=== PATIENT | female | born 2005 | race Caucasian/White ===

== ENCOUNTER 2024-06-26 19:59 | Emergency (ER) | payer BC, SELFPAY ==
--- NOTE | ~2024-06-26 | CT_ITS ---
EXAMINATION: CT brain wo con DATE: 06/26/2024 21:13 INDICATION: dizziness X 5 DAYS. . TECHNIQUE: Computed tomography (CT) of the head was performed without intravenous contrast. The mA wa s adjusted according to patient size. Iterative reconstruction technique was employed. The dose-lengt h product was 605.33 mGy-cm. COMPARISON: None. FINDINGS: No acute intracranial hemorrhage or extra-axial fluid collection. No hydrocephalus, mass, or herniation. No acute ischemic infarct. Unremarkable dural venous sinus attenuation. No acute osseous abnormality. The aerated spaces are clear. IMPRESSION: No acute intracranial process. Reviewed, dictated and finalized at location K. BREEDER
--- NOTE | ~2024-06-26 | XR_ITS ---
EXAMINATION: XR chest 1V Exam Date/Time: 06/26/2024 21:00 CESSATION SYSTEMS OUTREACH SPECIALIST HISTORY: Dizziness Comparison: None. RESULT: Lines, tubes, and devices: None. Lungs and pleura: Clear. Cardiomediastinal silhouette: Normal. Other: No acute osseous or upper abdominal finding. IMPRESSION: No acute cardiopulmonary process. Reviewed, dictated and finalized at location K. ATION SYSTEMS OUTREACH SPECIALIST
[2024-06-26 20:03] VITALS: BP 152/92; PULSE 124; RESP 20; TEMP 37; O2SAT 99
--- NOTE | 2024-06-26 20:17 | ECG_ITS ---
Test Date: 2024-06-26 20:36:38 Measurements Intervals [place] Rate: 118 P: 50 [place]: 164 QRS: 33 QRSD: 94 T: 5 QT: 324 QTc: 455 Interpretive Statements SINUS TACHYCARDIA NONSPECIFIC ST AND T-WAVE ABNORMALITY ABNORMAL ECG No previous ECG available for comparison Electronically Signed On 06-27-2024 10:21:24 PERIOPERATIVE TECH by Matt Pena M.D.
--- NOTE | 2024-06-26 20:17 | ED.DIZZY ---
HPI - Dizziness General Chief Complaint: Dizziness Stated Complaint: Dizziness/Weakness Time Seen by Provider: 06/26/24 20:06 Source: patient Mode of arrival: ambulatory Limitations: no limitations History of Present Illness HPI Narrative: patient is 19 years old white female drove herself to the emergency room because of dizziness, lightheadedness and feeling like going to black out for the last 5 days. Patient been taking Antivert without improvement. History of similar symptoms secondary to vertigo and usually gets better on Antivert. History of anxiety, depression, factor 5 deficiency syndrome, patient quit taking Lexapro 2 weeks ago. She does not believe is working. She denies any fever, chills, chest pain, shortness of breath, she report intermittent headache, possible fever, intermittent nausea, patient report her symptoms gets worse with movement, nothing make it better Patient does not drink alcohol, she vapes, denied drug use. Patient started her menstrual cycle today. She denies any chest pain or shortness of breath or leg pain Related Data Home Medications ?Medication ?Instructions ?Recorded ?Confirmed ?Last Taken ?Type No Home Medications 06/26/24 06/26/24 Unknown History Allergies Allergy/AdvReac Type Severity Reaction Status Date / Time No Known Allergies Allergy Verified 06/26/24 20:01 Review of Systems Review of Systems: All systems reviewed & are unremarkable except as noted in HPI and below Exam Narrative: General appearance: Well-developed, well-nourished Skin: Normal color Head: Normocephalic, nontraumatic Eyes: Clear conjunctiva ENT: Oropharynx normal, ears normal, nose normal Neck: Supple, nontender Chest and respiratory: Airway patent, no respiratory distress, no accessory muscle use Heart: tachycardia Abdomen: Soft, nontender, no organomegaly, quiet bowel sounds Vascular: Normal peripheral pulses, normal capillary refill. Musculoskeletal: Normal range of motion, nontender back Neurologic: Alert and oriented ?3, SMALL ENGINE SPECIALIST is normal as tested, no gross motor deficit Course Vital Signs Vital signs: Vital Signs Temperature 37.0 C 06/26/24 20:03 Pulse Rate 124 H 06/26/24 20:03 Respiratory Rate 06/26/24 20:03 Blood Pressure 152/92 H 06/26/24 20:03 Pulse Oximetry 99 06/26/24 20:03 Oxygen Delivery Room Air 06/26/24 20:03 Temperature 37.0 C 06/26/24 20:03 Pulse Rate 120 H 06/26/24 20:26 Respiratory Rate 20 06/26/24 20:03 Blood Pressure 145/103 H 06/26/24 20:26 Pulse Oximetry 99 06/26/24 20:03 Oxygen Delivery Room Air 06/26/24 20:03 MDM - Dizziness MDM Narrative Medical decision making narrative: patient drove herself to the emergency room because of lightheadedness and dizziness for the last 5 days Vital signs showing blood pressure 152/92, heart rate of 124, otherwise within normal limit Physical examination consistent with tachycardia, otherwise insignificant Differential diagnosis include orthostatic hypotension, electrolyte imbalance, urinary tract infection, drug induced lightheadedness and dizziness, anxiety related symptoms, vertigo Blood workup today includes CBC, CMP, TSH showed no significant abnormalities CT head without contrast showed no acute abnormalities Chest x-ray showed no acute abnormalities Orthostatic blood pressure showed no abnormalities Diagnosis lightheadedness/ dizziness, stress related is high likely. Patient was advised to follow-up with her family physician to resume anti depression medication. Differential Diagnosis Differential diagnosis: Likely adverse reaction to drug and orthostatic hypotension Medical Records Attestation: I reviewed the patient's medical records. Lab Data Attestation: I reviewed the patient's lab results. 06/26/24 20:30 06/26/24 20:30 Labs: Lab Results 06/26/24 06/26/24 Range/Units 20:30 20:39 WBC 10.3 (4.8-10.8) K/mm3 RBC 4.76 (4.20-5.40) M/mm3 Hgb 13.2 (12.0-15.0) g/dL Hct 39.4 (35.0-49.0) % MCV 82.8 (78.0-102.0) fL MCH 27.7 (27.0-31.0) pg MCHC 33.5 (32-36) g/dL RDW 11.9 (11.6-14.4) % Plt Count 318 (150-420) K/mm3 MPV 10.6 (9.2-11.8) fl Immature Gran % (Auto) 0.4 H (0.0-0.0) % Neut % (Auto) 64.2 (50.0-70.0) % Lymph % (Auto) 28.5 (18.0-42.0) % Hand % (Auto) 5.4 (2.0-11.0) % Eos % (Auto) 1.1 (1.0-6.0) % Baso % (Auto) 0.4 (0.0-1.0) % Lymph # (Auto) 2.95 (1.10-4.50) K/mm3 Hand # (Auto) 0.56 (0.10-0.90) K/mm3 Eos # (Auto) 0.11 (0.02-0.50) K/mm3 Baso # (Auto) 0.04 (0.00-0.10) K/mm3 Abs Immat Gran (auto) 0.04 H (0.00-0.00) K/mm3 Absolute Neuts (auto) 6.64 (1.70-7.20) K/mm3 Absolute Nucleated RBC 0.00 (0.00-0.00) K/mm3 Nucleated RBC % 0.0 (0-0.0) % Sodium 141 (136-145) mmol/L Potassium 3.4 L (3.5-5.1) mmol/L Chloride 102 (98-108) mmol/L Carbon Dioxide 25 (21-32) mmol/L Anion Gap 14 H (4-12) mmol/L BUN 18 (7-18) mg/dL Creatinine 0.92 (0.55-1.02) mg/dL Estim Creat Clear Calc 115 ml/min Estimated GFR > 60 (59 - ) Glucose 85 (70-99) mg/dL Calculated Osmolality 292 (285-295) mOsm/kg Calcium 9.7 (8.5-10.1) mg/dL Total Bilirubin 0.4 (0.00-1.00) mg/dL AST 33 (15-37) U/L ALT 78 H (14-59) U/L Alkaline Phosphatase 111 (46-116) U/L Total Protein 8.1 (6.4-8.2) g/dL Albumin 4.5 (3.4-5.0) g/dL TSH 2.51 (0.36-3.74) uIU/mL Urine Color Yellow (Yellow) Urine Appearance Clear (Clear) Urine pH 5.5 (5.0-8.0) Ur Specific [place] >= 1.030 H (1.010-1.020) Urine Protein Negative (Negative) Urine Glucose (UA) Negative (Negative) Urine Ketones 1+ H (Negative) Ur Blood (Man) Trace-intact H (Negative) Urine Nitrate Negative (Negative) Urine Bilirubin Negative (Negative) Urine Urobilinogen 0.2 (0.2-1.0) mg/dL Leukocyte Esterase Rfl Negative (Negative) RADHA/UL Urine Test Negative Urine Opiates Screen Negative (Negative) Urine Methadone Screen Negative (Negative) Ur Barbiturates Screen Negative (Negative) Ur Phencyclidine Scrn Negative (Negative) Ur Amphetamine Screen Negative (Negative) U Benzodiazepines Scrn Negative (Negative) Urine Cocaine Screen Negative (Negative) U Cannabinoids Screen Negative (Negative) Imaging Data Radiologist's impression: Impressions Head CT 06/26/24 21:21 IMPRESSION: No acute intracranial process. Chest X-Ray 06/26/24 21:25 IMPRESSION: No acute cardiopulmonary process. ECG Data EKG #1: Attestation: I personally reviewed and interpreted this ECG as follows: ECG completion date: 06/26/24 Interpretation: sinus tachycardia at 118 beats per minute, abnormal EKG, no old EKG available for comparison Critical Care Time Critical Care Time Critical Care Time: No Discharge Plan Discharge Clinical Impression: Intermittent lightheadedness, History of depression Patient Disposition: Home, Self-Care Condition: Stable Instructions: Lightheadedness (ED) Additional Instructions: Return if symptoms are worsening , call your family physician for appointment, take Tylenol as as needed for aches and pain, continue home medications. Patient Language: Tristanian Prescriptions: No Action No Home Medications Follow-up/Referrals: UNKNOWN,DOCTOR [Primary Care Provider] -
[2024-06-26 20:24] VITALS: BP 137/97; PULSE 110
[2024-06-26 20:26] VITALS: BP 145/103; PULSE 120
[2024-06-26 20:34] LABS: Basophils Absolute Auto 0.04 K/mm3 (0.00-0.10); Basophils Percent Auto 0.4 % (0.0-1.0); Eosinophils Absolute Auto 0.11 K/mm3 (0.02-0.50); Eosinophils Percent Auto 1.1 % (1.0-6.0); Hematocrit 39.4 % (35.0-49.0); Hemoglobin 13.2 g/dL (12.0-15.0); Immature Granulocyte Absolute 0.04 K/mm3 (0.00-0.00); Immature Granulocyte Percent A 0.4 % (0.0-0.0); Lymphocytes Absolute Auto 2.95 K/mm3 (1.10-4.50); Lymphocytes Percent Auto 28.5 % (18.0-42.0); Mean Corpuscular HGB Conc 33.5 g/dL (32-36); Mean Corpuscular Hemoglobin 27.7 pg (27.0-31.0); Mean Corpuscular Volume 82.8 fL (78.0-102.0); Mean Platelet Volume 10.6 fl (9.2-11.8); Monocytes Absolute Auto 0.56 K/mm3 (0.10-0.90); Monocytes Percent Auto 5.4 % (2.0-11.0); Neutrophils Absolute Auto 6.64 K/mm3 (1.70-7.20); Neutrophils Percent Auto 64.2 % (50.0-70.0); Platelet Count Result 318 K/mm3 (150-420); Red Blood Count 4.76 M/mm3 (4.20-5.40); Red Cell Distribution Width 11.9 % (11.6-14.4); White Blood Count 10.3 K/mm3 (4.8-10.8)
[2024-06-26 20:44] LABS: Add Urine Microscopic? NO; Appearance Urine Clear (Clear); Bilirubin Urine Negative (Negative); Blood Urine Trace-intact (Negative); Color Urine Yellow (Yellow); Glucose Urine UA Negative (Negative); Ketones Urine 1+ (Negative); Leukocyte Esterase Ur Negative LEU/UL (Negative); Nitrate Urine Negative (Negative); Protein Urine Negative (Negative); Specific Grav Ur >= 1.030 (1.010-1.020); Urobilinogen Urine 0.2 mg/dL (0.2-1.0); pH Urine 5.5 (5.0-8.0)
[2024-06-26 20:46] LABS: Pregnancy On Board Control Positive; Urine Pregnancy Test Negative
[2024-06-26 20:53] LABS: Amphetamine Screen Urine Negative (Negative); Barbiturate Screen Urine Negative (Negative); Benzodiazepines Screen Urine Negative (Negative); Cannabinoid Screen Urine Negative (Negative); Cocaine Screen Urine Negative (Negative); Methadone Screen Urine Negative (Negative); Opiate Screen Urine Negative (Negative); Phencyclidine Screen Urine Negative (Negative)
[2024-06-26 21:00] LABS: Alanine Aminotransferase 78 U/L (14-59); Albumin Level 4.5 g/dL (3.4-5.0); Alkaline Phosphatase 111 U/L (46-116); Anion Gap 14 mmol/L (4-12); Aspartate Amino Transferase 33 U/L (15-37); Bilirubin,Total 0.4 mg/dL (0.00-1.00); Blood Urea Nitrogen 18 mg/dL (7-18); Calcium 9.7 mg/dL (8.5-10.1); Carbon Dioxide 25 mmol/L (21-32); Chloride 102 mmol/L (98-108); Estimated CRCL calculation 115 ml/min; Estimated Glomerular Filt Rate > 60; Glucose 85 mg/dL (70-99); Osmolality Calculated 292 mOsm/kg (285-295); Potassium 3.4 mmol/L (3.5-5.1); Sodium 141 mmol/L (136-145); Thyroid Stimulating Hormone 2.51 uIU/mL (0.36-3.74); Total Protein 8.1 g/dL (6.4-8.2)
[2024-06-26 21:33] VITALS: BP 138/87; PULSE 101; RESP 18; TEMP 36.6; O2SAT 97
== END 2024-06-26 21:33 | disposition home or self-care (01) ==
PROVIDERS: Emergency Provider Emergency Medicine
DX: R42 Dizziness and giddiness (principal); D68.51 Activated protein C resistance; F41.9 Anxiety disorder, unspecified; F32.A Depression, unspecified; F17.290 Nicotine dependence, other tobacco product, uncomplicated
CPT/HCPCS: 36415; 70450; 71045; 80053; 80307; 81003; 81025; 84443; 85025; 93005; 99284